=== PATIENT | female | born 1990 | race Caucasian/White ===

== ENCOUNTER 2021-08-30 20:17 | Emergency (ER) | payer OTHER ==
[~2021-08-30] VITALS: Ht 162.6 cm; Wt 123.4 kg
[2021-08-30 20:46] VITALS: BP 154/97
--- NOTE | 2021-08-30 21:16 | NUR ---
30 YO/F BIB SELF W C/O SOB XAPPROX 1 WEEK, +CHEST TIGHTNESS WHEN INHALING DEEPLY X APPROX 4 DAYS, +NAUSEA/DIAHHREA, CHILLS, AND VOMITING WHEN COUGHING, +LIGHTHEADED WHEN SITTING OR STANDING. PT DIAGNOSED W BRONCHITIS LAST WEEK. PT DENIES ANY FEVERS OR BLOOD IN EMESIS OR STOOL. PT 100% ON RA, ABLE TO SPEAK IN FULL SENTENCES. BREATHING TACHYPNEIC. PT LAYING IN BED LOCKED IN LOWEST POSITION W HOB ELEVATED. PT PLACED IN GOWN, CONNECTED TO MONITOR. WILL CONTINUE TO MONITOR. PMH: DM, HTN, HIGH CHOL, GLOMERULONEPHRITIS, BRONGHITIS ALLERGIES: DENIES
[2021-08-30 21:34] LABS: BASOPHILS % (AUTO) 0.4 % (0.0-2.0); EOSINOPHILS # (AUTO) 0.2 K/uL (0-0.4); EOSINOPHILS % (AUTO) 1.9 % (0.0-4.0); HEMOGLOBIN 13.4 g/dL (12.0-16.0); LYMPHOCYTES % (AUTO) 20.2 % (20.5-51.1); MEAN CORPUSCULAR HEMOGLOBIN 28 pg (27-31); MEAN CORPUSCULAR HGB CONC 34 g/dL (33-37); MEAN CORPUSCULAR VOLUME 82.8 fL (80-94); MONOCYTES # (AUTO) 0.6 K/uL (0.8-1.0); MONOCYTES % (AUTO) 6.6 % (1.7-9.3); NEUTROPHILS # (AUTO) 6.9 K/uL (1.8-7.7); NEUTROPHILS % (AUTO) 70.9 % (42.2-75.2); PLATELET COUNT (AUTO) 378 K/uL (140-450); RED BLOOD CELL COUNT(AUTO) 4.84 MIL/uL (4.20-5.40); RED CELL DISTRIBUTION WIDTH 13.5 % (11.6-13.7); WHITE BLOOD COUNT (AUTO) 9.7 K/uL (4.8-10.8)
[2021-08-30 21:58] LABS: ALBUMIN 3.3 g/dL (3.4-5.0); ANION GAP 11.2 (8-16); CARBON DIOXIDE 25.6 mmol/L (21-32); CREATININE 1.2 mg/dL (0.6-1.3); POTASSIUM 3.8 mmol/L (3.5-5.1); TOTAL BILIRUBIN 0.2 mg/dL (0.0-1.0)
--- NOTE | 2021-08-30 22:22 | NUR ---
Dr. Mireles examining patient.
--- NOTE | 2021-08-30 23:31 | NUR ---
AWAITING LAB RESULTS. VSS. BREATHING EVEN AND UNLABORED.
--- NOTE | 2021-08-31 00:42 | NUR ---
ERMD AT BEDSIDE FOR PT CARE.
[2021-08-31 00:45] VITALS: BP 123/69
--- NOTE | 2021-08-31 00:49 | NUR ---
Patient discharged with v/s stable. Written and verbal after care instructions given and explained. Patient verbalized understanding. Ambulatory with steady gait. All questions addressed prior to discharge. Advised to follow up with PMD.
== END 2021-08-31 00:49 | disposition home or self-care (01) ==
LOC: MED 20:17
DX: R06.00 Dyspnea, unspecified (principal); R00.0 Tachycardia, unspecified; J06.9 Acute upper respiratory infection, unspecified; E11.65 Type 2 diabetes mellitus with hyperglycemia; I10 Essential (primary) hypertension
CPT/HCPCS: 36415; 71045; 80053; 83880; 84484; 85025; 85379; 93005; 99285; Q0092